=== PATIENT | male | born 1975 | race Caucasian/White ===

== ENCOUNTER 2019-05-05 11:51 | Emergency (ER) | payer OTHER ==
[~2019-05-05] VITALS: Ht 165.1 cm; Wt 90.7 kg
== END 2019-05-05 16:30 | disposition home or self-care (01) ==
LOC: ER 11:51
DX: K51.818 Other ulcerative colitis with other complication (principal)

== ENCOUNTER 2022-05-02 09:14 | Emergency (ER) | payer OTHER ==
[~2022-05-02] VITALS: Ht 167.6 cm; Wt 77.1 kg
[~2022-05-02 09:14] MED LIST: ONDANSETRON ODT4 MG PO; PROTONIX40 MG PO; [UNRECOGNIZED DRUG - OTHER]
== END 2022-05-02 15:52 | disposition home or self-care (01) ==
LOC: ER 09:14
DX: K21.00 Gastro-esophageal reflux disease with esophagitis, without bleeding (principal); Z88.8 Allergy status to other drugs, medicaments and biological substances

== ENCOUNTER 2022-07-18 10:08 | Emergency (ER) | payer OTHER ==
[~2022-07-18] VITALS: Ht 167.6 cm; Wt 72.6 kg
[2022-07-18] MEDS ORDERED: CIPROFLOXACIN500 MG PO (10:32)
[2022-07-18] MEDS ORDERED: ENTYVIO300 MG IV (10:32)
[2022-07-18] MEDS ORDERED: METRONIDAZOLE500 MG (10:32)
[2022-07-18] MEDS ORDERED: PRILOSEC OTC20 MG PO (17:49)
== END 2022-07-18 18:35 | disposition home or self-care (01) ==
LOC: ER 10:08
DX: K21.00 Gastro-esophageal reflux disease with esophagitis, without bleeding (principal); K29.70 Gastritis, unspecified, without bleeding; K82.4 Cholesterolosis of gallbladder; K76.89 Other specified diseases of liver; Z88.8 Allergy status to other drugs, medicaments and biological substances

== ENCOUNTER 2022-12-23 16:15 | Emergency (ER) | payer OTHER ==
[~2022-12-23] VITALS: Ht 167.6 cm; Wt 72.6 kg
[~2022-12-23 16:15] MED LIST changes: +CIPROFLOXACIN500 MG PO; +ENTYVIO300 MG IV; +METRONIDAZOLE500 MG; +PRILOSEC OTC20 MG PO
[2022-12-23] MEDS ORDERED: OMEPRAZOLE20 MG PO (17:21)
[2022-12-23] MEDS ORDERED: ONDANSETRON ODT8 MG PO (17:22)
[2022-12-23] MEDS ORDERED: ZOFRAN8 MG SL (23:10)
[2022-12-23] MEDS ORDERED: INTESTINEX680 M1 PO (23:10)
== END 2022-12-23 23:27 | disposition home or self-care (01) ==
LOC: ER 16:15
DX: K29.70 Gastritis, unspecified, without bleeding (principal); Z88.8 Allergy status to other drugs, medicaments and biological substances